=== PATIENT | male | born 1945 | race Caucasian/White ===

== ENCOUNTER 2017-09-21 13:42 | Emergency (ER) | payer MEDICARE ==
[~2017-09-21] VITALS: Ht 175.3 cm; Wt 117.9 kg
--- OUTSIDE RECORDS SUMMARY | 2017-09-21 13:46 | XMS REPORT | Clinical Summary ---
Author Author [facility] Organization [facility] Address Unknown Phone Unavailable Care Team Providers Care [employer] Name Role Phone Mateus Wynne PCP Allergies Active Allergy Reactions Severity Noted Date Comments No Known Drug Allergies 11/26/2015 Current Medications Prescription Sig. Disp. Refills Start End Date Status Date lisinopril 10/20/19 Active (PRINIVIL,ZESTRIL) 40 MG 16 tablet simvastatin (ZOCOR) 40 MG 10/22/19 Active tablet 16 glipiZIDE (GLUCOTROL) 10 12/30/19 Active MG tablet 16 metoprolol tartrate 10/22/19 Active (LOPRESSOR) 50 MG tablet 16 HYDROXYZINE HCL ORAL Take 25 mg by mouth. Active levocetirizine (XYZAL) 5 Take 5 mg by mouth every Active MG tablet evening. tamsulosin (FLOMAX) 0.4 03/21/20 Active mg capsule,extended 16 release 24hr diclofenac (VOLTAREN) 1 % 01/27/20 Active gel 16 metFORMIN (GLUCOPHAGE) 06/09/19 Active 500 mg tablet 18 cyanocobalamin (VITAMIN Take 1,000 mcg by mouth Active B-12) 1000 MCG tablet daily. MULTIVIT-MIN/FA/LYCOPEN/L Take by mouth. Active UTEIN (CENTRUM SILVER MEN ORAL) rivaroxaban (XARELTO) 20 Take 20 mg by mouth. Active mg tablet meloxicam (MOBIC) 15 MG 12/14/19 08/07/19 Discontin tablet 16 18 ued metFORMIN XR 12/30/19 08/07/19 Discontin (GLUCOPHATE-XR) 500 MG 24 16 18 ued hr tablet fluticasone (FLONASE) 50 1 spray into each nostril 08/07/19 Discontin mcg/actuation nasal spray daily. 18 ued fluocinolone acetonide Administer into ears 2 08/11/19 Discontin oil 0.01 % drops (two) times a day. 18 ued montelukast (SINGULAIR) Take 10 mg by mouth 08/07/19 Discontin 10 mg tablet nightly. 18 ued HYDROcodone-acetaminophen 02/24/20 02/28/20 Discontin (NORCO) 7.5-325 mg per 16 17 ued tablet HYDROcodone-acetaminophen Take 1 tablet by mouth 30 tablet 0 08/11/19 08/16/19 (NORCO) 5-325 mg per every 4 (four) hours as 18 18 tablet needed for moderate pain for up to 5 days. Max Daily Amount: 6 tablets cephalexin (KEFLEX) 500 Take 1 capsule (500 mg 20 capsule 0 08/11/19 08/16/19 MG capsule total) by mouth every 6 18 18 (six) hours for 5 days. 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, left (Primary Dx); Preop testing 08/10/2017 Anesthesia General Surgery Kelle Miranda, Event 08/10/2017 Procedure Pass General Surgery 08/10/2017 Surgery General Surgery Faye Ramos MD RELEASE OF ULNAR NERVE-LEFT WRIST 08/06/2017 Pre-Admit Pre-Admission Testing Faye Ramos MD Preop testing (Primary Testing Dx) Appointment 02/27/2017 Office Visit Orthopedic Surgery Hemant Lemus MD Knee joint replacement status, bilateral (Primary Dx) 10/10/2016 [facility] General Surgery Humberto Fox, Encounter 10/10/2016 Anesthesia General Surgery Sherwin Montana MD 10/10/2016 Procedure Pass General Surgery 10/10/2016 Surgery General Surgery Humberto Fox, Cystoscopy , With Transurethral resection of prostate, Using Laser after 09/20/2016 Family History Medical History Relation Name Comments Alcohol abuse Father Heart disease Father Hypertension Father Alzheimer's disease Mother Hyperlipidemia Mother Relation Name Status Comments Father Maternal Grandfather Maternal Grandmother Mother Paternal Grandfather Paternal Grandmother Sister Alive Social History Tobacco Use Types Packs/Day Years Used Date Never Smoker Smokeless Tobacco: Chew Current User Alcohol Use Drinks/Week oz/Week Comments No Sex Assigned at Date Recorded Not on file Last Filed Vital Signs Vital Sign Reading Time Taken Blood Pressure 122/78 08/10/2017 9:10 AM CDT Pulse 67 08/10/2017 9:10 AM CDT Temperature 36.6 C (97.8 F) 08/10/2017 9:10 AM CDT Respiratory Rate 16 08/10/2017 9:10 AM CDT Oxygen Saturation 99% 08/10/2017 9:10 AM CDT Inhaled Oxygen - - Concentration Weight 119 kg (261 lb 11.2 oz) 08/10/2017 6:30 AM CDT Height 175.3 cm (5' 9") 08/10/2017 6:30 AM CDT Body Mass Index 38.65 08/10/2017 6:30 AM CDT Plan of Treatment Health Maintenance Due Date Last Done Comments COLON CANCER SCREENING 1996 SHINGRIX VACCINE (#1) 1996 ZOSTER VACCINE 2006 PNEUMOCOCCAL 10/24/2011 POLYSACCHARIDE VACCINE AGE 65 AND OVER PNEUMOCOCCAL-13 10/24/2011 INFLUENZA VACCINE 12/05/2017 Procedures Procedure Name Priority Date/Time Associated Diagnosis Comments NJ AN ELECTIVE Routine 08/10/2017 SUPRAGLOTTIC AIRWAY 7:43 AM CDT Procedure Note - Kelle Miranda MD - 08/10/2017 7:43 AM CDT Airway Performed by: KELLE MIRANDA Authorized by: KELLE MIRANDA Location: OR Urgency: Elective Difficult Airway: No Anesthesio logist: KELLE MIRANDA Performed by: anesthesio logist Preoxygena minerva with 100% O2: Yes Mask Ventilatio n: Not attempted Final Airway Type: Supraglott ic airway Final LMA: Classic LMA Size: 4 Number of Attempts at Approach: 1 NJ AN ELECTIVE Routine 10/12/2016 SUPRAGLOTTIC AIRWAY 9:38 AM CDT Procedure Note - Malvin Moe MD - 10/10/2016 1:32 PM CDT Airway Date/Time: 10/10/2016 1:24 PM Performed by: HILARIO FAIR Authorized by: MALVIN MOE Location: OR Urgency: Elective Resident/C RNA: HILARIO FAIR Performed by: resident/C RNA and anesthesio logist Preoxygena minerva with 100% O2: Yes C-spine Precaution s Maintained Throughout : Yes Mask Ventilatio n: Easy mask Final Airway Type: Supraglott ic airway Final LMA: Classic LMA Size: 5 Number of Attempts at Approach: 1 after 09/20/2016 Results * POC glucose (08/10/2017 8:50 AM) Only the most recent of 4 results within the time period is included. Component Value Ref Range POC glucose 90 65 - 100 mg/dL Comment: Meter ID: [id number] Market Risk Manager: Julia Rahman Specimen Performing Laboratory [facility] [address] [place] [address] * ECG Pre/Post Op (08/06/2017 3:18 PM) Component Value Ref Range Ventricular rate 62 Atrial rate 63 QRSD interval 92 QT interval 434 QTC interval 440 QRS axis 1 67 T wave axis 142 EKG impression Atrial fibrillation with premature ventricular or aberrantly conducted complexes-Nonspecific T wave abnormality , probably digitalis effect-Abnormal ECG-In automated comparison with ECG of 05-MAR-2016 11:05,-Atrial fibrillation has replaced Sinus rhythm-Borderline criteria for Inferior infarct are no longer present-Nonspecific T wave abnormality now evident in Inferior leads- Specimen Performing Laboratory [facility] [address] [place] [id number] * CBC with platelet and differential (08/06/2017 2:30 PM) Component Value Ref Range WBC 8.1 4.2 - 11.0 k/uL RBC 4.05 4.04 - 5.86 m/uL HGB 11.9 (L) 13.0 - 17.3 g/dL HCT 36.8 34.0 - 45.0 % MCV 90.9 80.0 - 98.0 fL MCH 29.4 27.0 - 34.0 pg MCHC 32.3 31.5 - 36.5 g/dL RDW - SD 48.4 37.0 - 51.0 fL MPV 11.0 (H) 7.4 - 10.4 fL Platelet count 204 150 - 400 k/uL Nucleated RBC 0.00 /100 WBC Neutrophils 64.9 36.0 - 66.0 % Lymphocytes 24.8 24.0 - 44.0 % Monocytes 8.0 (H) 0.0 - 6.0 % Eosinophils 1.6 0.0 - 6.0 % Basophils 0.5 0.0 - 1.2 % Immature granulocytes 0.2 0.0 - 1.0 % Specimen Performing Laboratory Blood [facility] [address] [place] [address] * XR Knee 3 Vw Bilateral (02/27/2017 9:51 AM) Specimen Performing Laboratory [facility] [address] [place] [address] Narrative Weightbearing AP and PA x-rays with lateral x-rays of both knees: Patient has total knee arthroplasties bilaterally. The right knee appears Wells secured with no evidence of significant loosening. There is some radial lucency under the tibial tray on the left side suggesting possibly some early loosening after 09/20/2016 Insurance Payer Benefit Subscriber ID Type Phone Address Plan / Group MEDICARE MEDICARE xxxxxxxxxx Medicare [place], [place] PART A AND B AARP AARP xxxxxxxxxx [place] [address]
[2017-09-21] MEDS ORDERED: ACETAMINOPHEN 325 MG TAB PO ONE (14:15)
[2017-09-21] MEDS ORDERED: TETANUS/DIPHTHERIA TOX ADULT 0.5 ML SYR IM ONE (14:15)
--- NOTE | 2017-09-21 15:13 | Diagnostic Imaging Report ---
Exams: Head and cervical spine CTs without IV contrast History: Trauma, fall, laceration to forehead. Comparison studies: None Technique: Axial images were obtained from the brain and cervical spine. Coronal and sagittal images reconstructed from the axial data. Intravenous contrast: None Findings: Head CT: Scalp: Right paramedian frontal scalp hematoma. No retained hyperdense foreign bodies. Bones: No fractures, blastic or lytic lesions. Extra-axial spaces: No masses. No fluid collections. Brain sulci: Mildly prominent. Ventricles: Mild compensatory dilatation. No hydrocephalus. Parenchyma: No mass, acute hemorrhage or acute cortical vascular insults. A few scattered and mildly confluent hypodensities in the supratentorial white matter are nonspecific but most compatible with chronic small vessel ischemic changes. Sellar/suprasellar region: No abnormalities. Craniocervical junction: The foramen magnum is patent. No Chiari one malformation. Cervical spine CT: Fractures: None. Soft tissues: No gross abnormalities. Atlantoaxial articulation: Intact. Alignment: Strain cervical curvature may be positional. No subluxations. Cervicomedullary junction: No abnormalities. The foramen magnum is patent. Vertebrae: No infection or neoplasm. Degenerative changes: Moderately degenerated C5-C6 discs. Mildly degenerated disks from C2 to C5 and from C6 to T1. At least mild canal stenosis at C4-C5 and C5-C6 due to disc osteophyte complexes. Moderate multilevel facet arthrosis, slightly greater on the left from C2 to C5. Multilevel foraminal stenosis due to uncovertebral facet arthrosis (moderate left at C2-C3, mild bilaterally at C3-C4 and at C4-C5 and moderate right and mild left at C5-C6). Incidental findings: Calcified atherosclerosis in the cervical carotid bulbs and in the carotid siphons. Slight anatomical frontal course of the left common carotid artery C4-C5 vertebral level. IMPRESSION: Head CT: 1. Right paramedian frontal scalp hematoma without retained hyperdense foreign body or underlying fracture. 2. No acute intracranial abnormalities. 3. Mild generalized volume loss. 4. Moderate chronic microvascular ischemic changes. Cervical spine CT: 1. No cervical spine fracture or subluxation. 2. Multilevel degenerative changes as described. 3. Cannot adequately evaluate ligament, spinal cord and or vascular abnormalities on the basis of this examination. Signed by: Dr. Steve Jose M.D. on 09/21/2017 3:09 PM
== END 2017-09-21 16:48 | disposition home or self-care (01) ==
LOC: ER 13:42
DX: S06.0X0A Concussion without loss of consciousness, initial encounter (principal); S01.81XA Laceration without foreign body of other part of head, initial encounter; W01.0XXA Fall on same level from slipping, tripping and stumbling without subsequent striking against object, initial encounter; Y92.008 Other place in unspecified non-institutional (private) residence as the place of occurrence of the external cause; E11.9 Type 2 diabetes mellitus without complications; I48.91 Unspecified atrial fibrillation
CPT/HCPCS: 70450; 72125; 90471; 90714; 99284

== ENCOUNTER → 2017-10-15 | Outpatient (CLI) | payer MEDICARE ==
--- NOTE | 2017-10-15 15:15 | Diagnostic Imaging Report ---
PROCEDURE: CT ABDOMEN AND PELVIS WITHOUT CONTRAST TECHNIQUE: The abdomen and pelvis were scanned utilizing a multidetector helical scanner from the diaphragm to the lesser trochanter without contrast per stone protocol. Coronal and sagittal multiplanar reformations were obtained. COMPARISON: None. INDICATIONS: CALCULUS OF KIDNEY FINDINGS: ABSENCE OF INTRAVENOUS CONTRAST DECREASES SENSITIVITY FOR DETECTION OF FOCAL LESIONS AND VASCULAR PATHOLOGY. LOWER THORAX: Moderate coronary artery calcifications. Tiny bilateral pleural effusions. HEPATOBILIARY: No focal hepatic lesions. No biliary ductal dilatation. Gallbladder: Contracted gallbladder with gallstones. No gallbladder wall thickening. SPLEEN: No splenomegaly. Scattered calcified granulomas. PANCREAS: No focal masses or ductal dilatation. ADRENALS: No adrenal nodules. KIDNEYS/URETERS: No hydronephrosis, stones, or solid mass lesions. Nonspecific bilateral perinephric fat stranding. PELVIC ORGANS/BLADDER: Prostate measures 5.8 cm in transverse dimension.. PERITONEUM / RETROPERITONEUM: No free air or fluid. LYMPH NODES: No lymphadenopathy. VESSELS: The mild atherosclerotic calcifications in the aorta. GI TRACT: No distention or wall thickening. BONES AND SOFT TISSUES: Degenerative changes in the lumbar spine with severe degenerative changes at L2-L3 with severe disc space narrowing and a very large posterior disc osteophyte. Additional posterior disc osteophyte at L3-L4 and L4-L5. Postsurgical changes in left groin. IMPRESSION: 1. No renal stones identified. 2. Bilateral nonspecific perinephric fat stranding. Dictated by: Pablo Desai M.D. on 10/15/2017 at 15:18 Electronically approved by: Pablo Desai M.D. on 10/15/2017 at 15:18
== END ==
LOC: CT 14:06
PROVIDERS: ATTEND Family Medicine
DX: N20.0 Calculus of kidney (principal)
CPT/HCPCS: 74176

== ENCOUNTER → 2017-11-22 | Outpatient (CLI) | payer MEDICARE ==
--- NOTE | 2017-11-22 13:20 | Diagnostic Imaging Report ---
PROCEDURE: CT CHEST WITHOUT CONTRAST CT scan of the chest WITHOUT intravenous contrast, using standard protocol. TECHNIQUE: The chest was scanned utilizing a multidetector helical scanner from the apex to the level of the adrenal glands. Coronal and sagittal multiplanar reformations were obtained. DLP: 502.86 mGy-cm COMPARISON: [facility], CT, CT ABDOMEN/PELVIS WO, 10/15/2017, 14:43. INDICATIONS: PNEUMONIA FINDINGS: Lines/tubes: None. Lungs and Airways: The lungs and airways are normal with no focal abnormality demonstrated. No consolidation or nodules. Pleura: Pleural thickening versus small effusions. Heart and mediastinum: The thyroid gland is normal. Mediastinal lymph nodes likely are likely reactive. Tiny pericardial effusion. Coronary artery calcification and aortic valve calcification. Soft tissues: Normal. Abdomen: Limited views of the upper abdomen show no abnormality within the visualized liver, spleen, pancreas or kidneys. Calcified gallstones are present. Thickening of the right adrenal gland is unchanged. Bones: Degenerative changes of the spine. IMPRESSION: 1. No pulmonary consolidation. 2. Multiple mediastinal nodes likely are reactive. 3. Thickening of the right adrenal gland. 4. Cholelithiasis. Camilo Bowen D.O. Dictated by: Camilo Bowen D.O. on 11/22/2017 at 13:07 Electronically approved by: Camilo Bowen D.O. on 11/22/2017 at 13:25
== END ==
LOC: CT 11:37
PROVIDERS: ATTEND Family Medicine
DX: J18.9 Pneumonia, unspecified organism (principal)
CPT/HCPCS: 71250

== ENCOUNTER → 2018-01-18 | Outpatient (CLI) | payer MEDICARE ==
[~2018-01-18] MED LIST: IOPAMIDOL 370 MG/ML 200 ML INFUS..BTL INJ ONE; SODIUM CHLORIDE 0.9% 50ML 50 ML ONE
[2018-01-18 09:58] LABS: CREATININE, SERUM 1.2 mg/dL (0.72-1.25)
== END ==
LOC: CT 08:56
PROVIDERS: ATTEND Family Medicine
DX: I48.92 Unspecified atrial flutter (principal); R06.00 Dyspnea, unspecified
CPT/HCPCS: 36415; 71260; 82565; 84520; Q9967

== ENCOUNTER → 2018-05-16 | Outpatient (CLI) | payer MEDICARE ==
--- NOTE | 2018-05-16 13:14 | Diagnostic Imaging Report ---
EXAMINATION: CT scan of the chest without contrast. TECHNIQUE: Spiral CT images of the chest were performed from the lung apices to the level of the adrenal glands. No intravenous contrast was administered per referring physician request. Coronal and sagittal reformatted images were obtained. COMPARISON: CT chest 01/18/2018 CLINICAL HISTORY:Enlarged lymph nodes DISCUSSION: ABSENCE OF INTRAVENOUS CONTRAST DECREASES SENSITIVITY FOR DETECTION OF FOCAL LESIONS AND VASCULAR PATHOLOGY. LINES/TUBES: None. LUNGS AND AIRWAYS: The lungs are well-inflated. There are scattered foci of linear and round glass opacities which may reflect atelectasis. Previously described 3 mm groundglass nodule in the left upper lobe is no longer identified. No new nodules or consolidations. Trachea, mainstem bronchi, and central lobar and segmental bronchi are patent. PLEURA: Bilateral pleural effusions have resolved. No pneumothorax. HEART AND MEDIASTINUM: Visualized portions of the thyroid gland are normal. Pulmonary outflow tract measures 3.2 cm in caliber. Extensive wrangell coronary artery calcifications. No ectasia or aneurysmal dilatation of the thoracic aorta. Trace pericardial effusion has resolved. Mediastinal lymphadenopathy described on the comparison study has largely resolved. A right lower paratracheal lymph node measures 1 cm short axis, as does a precarinal lymph node. LYMPH NODES: As above. ABDOMEN: Visualized portions of the liver and pancreas are unremarkable. Unchanged thickening of the right adrenal gland without discrete nodule, and unchanged calcified splenic granulomata. BONES AND SOFT TISSUES: No focal soft tissue abnormalities. Advanced degenerative changes of the shoulders right worse then left. No osseous destructive lesions. IMPRESSION: Relative to CT scan of the chest, PE protocol dated 01/18/2018: Interval improvement in mediastinal lymphadenopathy as detailed above. Interval resolution of bilateral pleural effusions and interstitial pulmonary edema. Persistent findings include atherosclerotic coronary artery disease and borderline enlargement of the pulmonary outflow tract, suggestive of pulmonary arterial hypertension. Signed by: Dr. Steve Lozoya M.D. on 05/16/2018 1:10 PM
== END ==
LOC: CT 12:08
PROVIDERS: ATTEND Internal Medicine Pulmonary Disease
DX: R59.9 Enlarged lymph nodes, unspecified (principal)
CPT/HCPCS: 71250